=== PATIENT | male | born 1970 | race African-American/Black ===

== ENCOUNTER 2021-07-11 20:43 | Emergency (ER) | payer OTHER, SELFPAY | END 2021-07-11 23:19 | disposition home or self-care (01) | LOC: BURERS 20:43 | DX: S93.402A Sprain of unspecified ligament of left ankle, initial encounter (principal); S93.602A Unspecified sprain of left foot, initial encounter; X50.1XXA Overexertion from prolonged static or awkward postures, initial encounter; Y93.01 Activity, walking, marching and hiking; Z87.891 Personal history of nicotine dependence ==